=== PATIENT | male | born 1995 | race Two or more races ===

== ENCOUNTER 2020-02-13 11:13 | Emergency (ER) | payer SELFPAY ==
[2020-02-13] MEDS ORDERED: LIDOCAINE 5% (700 MG) TRANSDERMAL ADH..PATCH TP ONE (11:22)
[2020-02-13] MEDS ORDERED: CYCLOBENZAPRINE HCL 10 MG TABLET PO ONE (11:22)
[2020-02-13] MEDS ORDERED: KETOROLAC TROMETHAMINE 60 MG/2 ML SDV IM ONE (11:22)
--- NOTE | 2020-02-13 11:23 | ER Document Report ---
HPI - HPI Time Seen by Provider: 02/13/20 11:22 Pain Level: 3 Notes: 25-year-old male patient presents emergency department chief complaint of low back pain. Patient reports pain ongoing for the last 2 to 3 days. He denies any specific injury. Denies any bowel or bladder incontinence or urinary retention. He does report that he has a hard time having a bowel movement because it hurts to strain. Past Medical History - General Information source: Patient - Social History Smoking Status: Current Every Day Smoker Chew tobacco use (# tins/day): No Frequency of alcohol use: None Drug Abuse: None Family History: Reviewed & Not Pertinent Patient has homicidal ideation: No - Medical History Medical History: Negative Surgical Hx: Negative - Immunizations Immunizations up to date: Yes Vertical Provider Document - CONSTITUTIONAL Notes: PHYSICAL EXAMINATION: GENERAL: Well-appearing, well-nourished and in no acute distress. HEAD: Atraumatic, normocephalic. EYES: Pupils equal round extraocular movements intact, conjunctiva are normal. ENT: Nares patent NECK: Normal range of motion LUNGS: No respiratory distress Musculoskeletal: Normal range of motion, tenderness to the left lumbar paraspinous region. No vertebral tenderness, step-off or deformity. NEUROLOGICAL: Normal speech, normal gait. PSYCH: Normal mood, normal affect. SKIN: Warm, Dry, normal turgor, no rashes or lesions noted. Course - Re-evaluation Re-evalutation: Presentation of a well appearing patient complaining of acute on chronic back pain. No rapid progression of symptoms, systemic symptoms including fevers, chills, weight loss, history of recent bacterial infection, bilateral symptoms, numbness, weakness, difficulty walking, urinary retention or bowel incontinence, personal history of cancer, immunosuppression, diabetes, known AAA, or history of IV drug use. Exam is without point tenderness over vertebral bodies, pulsatile abdominal mass, and patient has symmetric and intact lower extremity strength, sensation, and reflexes without clonus. 2+ symmetric medial malleolar and dorsalis pedis pulses Based on history and physical, I have a very low suspicion of a concerning etiology of pain including epidural compression syndrome, spinal infection, transverse myelitis, malignancy, abdominal aortic aneurysm, renal colic, acute lower extremity claudication, neurogenic claudication, ankylosing spondylitis, or other intra-abdominal process. Due to absence of concerning risk factors in history and physical as well as absence of rapidly progressive, severe, or bilateral symptoms, will defer imaging at this point. Patient reports significant improvement in pain after administration of medications in the emergency department he will be discharged home at this time. - Vital Signs Vital signs: Temp Pulse Resp BP Pulse Ox 98.2 F 113 H 18 152/84 H 100 02/13/20 11:20 02/13/20 11:20 02/13/20 11:20 02/13/20 11:20 02/13/20 11:20 Discharge - Discharge Clinical Impression: Back pain Qualifiers: Back pain location: low back pain Chronicity: acute Back pain laterality: unspecified Sciatica presence: unspecified whether sciatica present Qualified C ode(s): M54.5 - Low back pain Condition: Stable Disposition: HOME, SELF-CARE Additional Instructions: You have been seen in the Emergency Department (ED) today for back pain. Your workup and exam have not shown any acute abnormalities and you are likely suffering from muscle strain or possible problems with your discs, but there is no treatment that will fix your symptoms at this time. Please take the medication that has been prescribed as directed. You should also purchase a local lidocaine cream such as "aspercreme with lidocaine" and use per bottle instructions to the affected area. Apply heat to the area as often as you are able. Continue to keep active and avoid prolonged periods of bed rest. Please follow up with your doctor as soon as possible regarding today's ED visit and your back pain. Return to the ED for worsening back pain, fever, weakness or numbness of either leg, or if you develop either (1) an inability to urinate or have bowel movements, or (2) loss of your ability to control your bathroom functions (if you start having "accidents"), or if you develop other new symptoms that concern you.concern you. Prescriptions: Cyclobenzaprine HCl [Flexeril 10 mg Tablet] 10 mg PO TIDP PRN #20 tab PRN Reason: Ibuprofen [Motrin 800 mg Tablet] 800 mg PO Q8H PRN #30 tab PRN Reason: Referrals: DALILA DOVE MD [NO LOCAL MD] - Follow up as needed DAJA OSBORNE MD [COMMUNITY BASED STAFF] - Follow up as needed
[2020-02-13 12:31] VITALS: BP 141/82
== END 2020-02-13 12:42 | disposition home or self-care (01) ==
LOC: ER 11:13
DX: K61.1 Rectal abscess (principal); L05.01 Pilonidal cyst with abscess; F17.200 Nicotine dependence, unspecified, uncomplicated; R30.0 Dysuria; M54.9 Dorsalgia, unspecified; R00.0 Tachycardia, unspecified
CPT/HCPCS: 99283; 96372; 10080; J1885

== ENCOUNTER 2020-02-14 14:31 | Observation (INO) | payer SELFPAY ==
--- NOTE | 2020-02-14 15:14 | ER Document Report ---
ED Neck/Back Problem - General Chief Complaint: Low Back Pain Stated Complaint: LOWER BACK PAIN Time Seen by Provider: 02/14/20 14:58 Mode of Arrival: Ambulatory Information source: Patient Notes: 25-year-old male with no previous medical problems presents to the emergency room complaining of worsening lower tailbone pain for the past week. Patient states he was seen here yesterday received a shot of Toradol as well as Flexeril states he felt better yesterday woke up this morning with worsening pain. He denies any trauma or injury to his back. 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 Has been taking the Flexeril and Motrin today without relief. Complains of dysuria. Denies any penile discharge. Denies any testicular pain. Denies any recent travel, no COVID-19 exposure. TRAVEL OUTSIDE OF THE [place] IN LAST 30 DAYS: No - Related Data Allergies/Adverse Reactions: hydrocodone Adverse Reaction (Mild, Verified 02/13/20 11:17) VOMITING Past Medical History - General Information source: Patient - Social History Smoking Status: Current Every Day Smoker Frequency of alcohol use: None Drug Abuse: None Family History: Reviewed & Not Pertinent - Immunizations Immunizations up to date: Yes Review of Systems - Review of Systems Constitutional: No symptoms reported EENT: No symptoms reported Cardiovascular: No symptoms reported Respiratory: No symptoms reported Gastrointestinal: No symptoms reported Genitourinary: Dysuria Male Genitourinary: No symptoms reported Musculoskeletal: Back pain Skin: No symptoms reported Neurological/Psychological: No symptoms reported -: Yes All other systems reviewed and negative Physical Exam - Vital signs Vitals: Temp Pulse Resp BP Pulse Ox 100.1 F 111 H 18 160/77 H 99 02/14/20 14:36 02/14/20 14:36 02/14/20 14:36 02/14/20 14:36 02/14/20 14:36 - General General appearance: Appears well In distress: Moderate - Respiratory Respiratory status: No respiratory distress Chest status: Nontender Breath sounds: Normal Chest palpation: Normal - Cardiovascular Rhythm: Tachycardia Heart sounds: Normal auscultation Murmur: No - Abdominal Inspection: Normal Distension: No distension Bowel sounds: Normal Tenderness: Nontender Organomegaly: No organomegaly - Rectal Tenderness: Yes Hemorrhoids: None Notes: There is a 2 cm nonfluctuant, warm and tender right sided abscess on right b uttock area between the rectum and the pilonidal area. Not consistent with a perirectal abscess or a pilonidal abscess.. 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 - Back Back: Normal, Tender - Tenderness with a palpable perirectal abscess that is warm to palpation.. No: CVA tenderness, Vertebra tenderness - Neurological Neuro grossly intact: Yes Cognition: Normal Orientation: AAOx4 [place] Coma Scale Eye Opening: Spontaneous [place]te Coma Scale Verbal: Oriented [place] Coma Scale Motor: Obeys Commands [place] Coma Scale Total: 15 Speech: Normal Motor strength normal: LUE, RUE, LLE, RLE Sensory: Normal Course - Re-evaluation Re-evalutation: 02/14/20 16:18 Patient is resting comfortably with decreased pain. Reviewed all test results with patient. Was seen and evaluated by my attending Dr. Jackson. 02/14/20 16:29 patient is aware that I have discussed this case with on-call surgeon Dr. Alva who will come down and see the patient in evaluation. 02/14/20 17:00 Patient was seen and evaluated by on-call surgeon Dr. Alva per nursing staff patient will be going to the OR. - Vital Signs Vital signs: Temp Pulse Resp BP Pulse Ox 98.8 F 87 16 160/77 H 98 02/14/20 17:11 02/14/20 16:59 02/14/20 16:59 02/14/20 14:36 02/14/20 16:59 - Laboratory Result Diagrams: 02/14/20 15:07 02/14/20 15:07 Laboratory results interpreted by me: 02/14/20 02/14/20 15:07 15:07 WBC 13.2 H Lymph % (Auto) 10.6 L Absolute Neuts (auto) 10.2 H Urine Ketones TRACE H - Diagnostic Test Radiology reviewed: Reports reviewed - Consults Dr. Alva Time consulted: 16:28 Reason for consultation: 02/14/20 16:28 possible surgical intervention vs. admit for IV antibiotics. Consulted provider: will come to ER Discharge - Discharge Clinical Impression: Rectal abscess Condition: Stable Disposition: ADMITTED OBSERVATION Unit Admitted: Surgical Floor
[2020-02-14] MEDS ORDERED: MORPHINE SULFATE 10 MG/ML INJ IV ONE (15:15)
[2020-02-14] MEDS ORDERED: NORMAL SALINE 1000 ML 1,000 ML IV ONE (15:15)
[2020-02-14] MEDS ORDERED: ACETAMINOPHEN 325 MG TABLET PO ONE (15:15)
[2020-02-14 15:27] LABS: ABSOLUTE EOSINOPHILS # (AUTO) 0.2 10^3/uL (0.0-0.6); ABSOLUTE LYMPHOCYTES (AUTO) 1.4 10^3/uL (0.5-4.7); ABSOLUTE MONOCYTES (AUTO) 1.4 10^3/uL (0.1-1.4); ABSOLUTE NEUT (AUTO) 10.2 10^3/uL (1.7-8.2); APPEARANCE,URINE CLEAR; BASOPHILS % (AUTO) 0.3 % (0-2); BILIRUBIN,URINE NEGATIVE (NEGATIVE); COLOR,URINE YELLOW; EOSINOPHILS % (AUTO) 1.5 % (0-6); GLUCOSE, URINE NEGATIVE (NEGATIVE); HEMOGLOBIN 15.1 g/dL (13.5-17.0); KETONES,URINE TRACE mg/dL (NEGATIVE); LEUKOCYTE ESTERASE,URINE NEGATIVE (NEGATIVE); LYMPHOCYTES % (AUTO) 10.6 % (13-45); MEAN CORPUSCULAR HEMOGLOBIN 31.3 pg (27.0-33.4); MEAN CORPUSCULAR HGB CONC 35.9 g/dL (32.0-36.0); MEAN CORPUSCULAR VOLUME 87 fl (80-97); MONOCYTES % (AUTO) 10.3 % (3-13); NITRITE,URINE NEGATIVE (NEGATIVE); PLATELET COUNT 291 10^3/uL (150-450); PROTEIN,URINE NEGATIVE (NEGATIVE); RED BLOOD COUNT 4.82 10^6/uL (4.35-5.55); SEGMENTED NEUTROPHILS % (AUTO) 77.3 % (42-78); TOTAL CELLS COUNTED % (AUTO) 100 %; URINE SPECIFIC GRAVITY 1.024; UROBILINOGEN,URINE NEGATIVE mg/dL (<2.0); WHITE BLOOD COUNT 13.2 10^3/uL (4.0-10.5)
[2020-02-14 15:38] LABS: ALBUMIN 4.5 g/dL (3.5-5.0); ALKALINE PHOSPHATASE 92 U/L (38-126); ANION GAP 9 (5-19); ASPARTATE AMINO TRANSFERASE 19 U/L (17-59); BILIRUBIN,TOTAL 0.9 mg/dL (0.2-1.3); BLOOD UREA NITROGEN 9 mg/dL (7-20); CALCIUM 9.5 mg/dL (8.4-10.2); CARBON DIOXIDE 26 mmol/L (22-30); CHLORIDE 102 mmol/L (98-107); GLUCOSE 98 mg/dL (75-110); POTASSIUM 4.3 mmol/L (3.6-5.0); TOTAL PROTEIN 7.6 g/dL (6.3-8.2)
--- NOTE | 2020-02-14 16:05 | RADIOLOGY REPORT (SQ) ---
EXAM DESCRIPTION: CT ABD/PELVIS WITH IV ONLY IMAGES COMPLETED DATE/TIME: 02/14/2020 3:45 pm REASON FOR STUDY: rectal abscess COMPARISON: None. TECHNIQUE: CT scan of the abdomen and pelvis performed using helical scanning technique with dynamic intravenous contrast injection. No oral contrast. Images reviewed with lung, soft tissue, and bone windows. Reconstructed coronal and sagittal MPR images reviewed. Delayed images for evaluation of the urinary system also acquired. All images stored on PACS. All CT scanners at this facility use dose modulation, iterative reconstruction, and/or weight based d osing when appropriate to reduce radiation dose to as low as reasonably achievable (ALARA). [facility]: Dose Right [facility]: CareDose [facility]: Dose Right [facility]: Teradose 4D [facility]: backstitch CONTRAST TYPE AND DOSE: Contrast/concentration: Isovue 350.00 mg/ml; Total Contrast Delivered: 99.0 ml; Total Saline Delivered: 46.2 ml RENAL FUNCTION: None required. The patient is less than 50 years old. RADIATION DOSE: CT Rad equipment meets quality standard of care and radiation dose reduction techniq ues were employed. CTDIvol: 16.9 - 20.3 mGy. DLP: 2246 mGy-cm. LIMITATIONS: None. FINDINGS: LOWER CHEST: No acute findings. LIVER: The morphology of the liver is noncirrhotic. The portal veins are patent. There is no hepati c mass. SPLEEN: No splenomegaly or splenic mass. PANCREAS: No acute abnormality of the pancreas. GALLBLADDER: No abnormality that is apparent on CT. ADRENAL GLANDS: No mass or asymmetry. RIGHT KIDNEY AND URETER: No solid masses. No calcifications. No hydronephrosis or hydroureter. LEFT KIDNEY AND URETER: No solid masses. No calcifications. No hydronephrosis or hydroureter. AORTA AND VESSELS: No aneurysm or dissection of the abdominal aorta. RETROPERITONEUM: No retroperitoneal adenopathy, hemorrhage or mass. BOWEL AND PERITONEAL CAVITY: No bowel obstruction, bowel wall thickening or pericolonic/ perienteric inflammation. No mesenteric adenopathy, free intraperitoneal fluid or mesenteric/ omental inflammati on. APPENDIX: Normal. PELVIS: No abnormality. ABDOMINAL WALL: There is a subcutaneous fluid collection in the superior aspect of the intergluteal c left (posterior to the coccyx on image 96 of series 3) that measures 1.8 cm in AP diameter, 1.8 cm in transverse diameter and 2.5 cm in AP diameter. The collection is associated with dermal thickening a nd inflammatory stranding of the surrounding fat. There is no associated erosion of the coccyx. BONES: No fracture or osseous lesion. OTHER: No other finding. IMPRESSION: Subcutaneous abscess in the superior aspect of the intergluteal cleft (posterior to the coccyx on image 96 of series 3) that measures 1.8 cm in AP diameter, 1.8 cm in transverse diameter an d 2.5 cm in AP diameter. The abscess is associated with dermal thickening and inflammatory stranding of the surrounding fat. There is no associated erosion of the coccyx. TECHNICAL DOCUMENTATION: JOB ID: [id number] Quality ID # [id number]: Final reports with documentation of one or more dose reduction techniques (e.g., Au tomated exposure control, adjustment of the mA and/or kV according to patient size, use of iterative reconstruction technique) 2010 [employer]- All Rights Reserved Reading location - IP/workstation name: [email or web address]
[2020-02-14] MEDS ORDERED: VANCOMYCIN HCL INJ 1000 MG VIAL IV ONE (16:18)
[2020-02-14] MEDS ORDERED: DEXTROSE 50%-WATER 25 GM/50 ML DISP.SYRIN IV PRN ×2 (18:39)
[2020-02-14] MEDS ORDERED: GLUCAGON,HUMAN RECOMB 1 MG INJ SUBCUT PRN (18:39)
[2020-02-14] MEDS ORDERED: DEXTROSE 40% GEL 15 GM TUBE PO PRN ×2 (18:39)
[2020-02-14] MEDS ORDERED: PIPERACILLIN/TAZOBACTAM 3.375 GM VIAL IV SCH (18:45)
[2020-02-14] MEDS ORDERED: ONDANSETRON HCL INJ/PF 4 MG/2 ML SDV IV SCH (18:45)
[2020-02-14] MEDS: PIPERACILLIN SODIUM/TAZOBACTAM 3.375 GM in NORMAL SALINE 100 ML IV SCH (20:28)
[2020-02-14] MEDS: DEXTROSE 5%-LACTATED RINGERS 1,000 ML IV PRN (20:31)
[2020-02-14] MEDS: MORPHINE SULFATE 10 MG/ML INJ IV PRN (20:31)
[2020-02-14] MEDS ORDERED: HYDROMORPHONE HCL INJ/PF 2 MG/ML AMPULE IV PRN (22:09)
[2020-02-15] MEDS ORDERED: KETOROLAC TROMETHAMINE 60 MG/2 ML SDV IV SCH
[2020-02-15] MEDS ORDERED: KETOROLAC TROMETHAMINE INJ/PF 30 MG/1 ML SDV IV ONE (01:30)
[2020-02-15] MEDS: PIPERACILLIN SODIUM/TAZOBACTAM 3.375 GM in NORMAL SALINE 100 ML IV SCH ×3 (03:48→14:44)
[2020-02-15] MEDS ORDERED: ONDANSETRON HCL INJ/PF 4 MG/2 ML SDV ONE (05:00)
[2020-02-15] MEDS ORDERED: DEXAMETHASONE SOD PHOSPHATE INJ 4 MG/1 ML VIAL ONE (05:00)
[2020-02-15] MEDS ORDERED: SUCCINYLCHOLINE CHLORIDE INJ 200 MG/10 ML VIAL ONE (05:00)
[2020-02-15] MEDS ORDERED: ROCURONIUM BROMIDE INJ 50 MG/5 ML VIAL IV ONE (05:00)
[2020-02-15] MEDS: MORPHINE SULFATE 10 MG/ML INJ IV PRN (05:51)
[2020-02-15] MEDS: KETOROLAC TROMETHAMINE INJ/PF 30 MG/1 ML SDV IV SCH ×2 (05:54→12:44)
[2020-02-15] MEDS ORDERED: FENTANYL CITRATE INJ/PF 100 MCG/2 ML AMPUL ONE (07:09)
[2020-02-15] MEDS ORDERED: HYDROMORPHONE HCL INJ/PF 2 MG/ML AMPULE ONE (07:09)
[2020-02-15] MEDS ORDERED: MIDAZOLAM 2 MG/2 ML INJ ONE (07:09)
[2020-02-15] MEDS ORDERED: DEXMEDETOMIDINE INJ 80 MCG/20 ML VIAL IV ONE (07:09)
[2020-02-15] MEDS ORDERED: PROPOFOL INJ 200 MG/20 ML VIAL IV ONE ×2 (07:10)
[2020-02-15] MEDS ORDERED: LIDOCAINE 0.5% INJ-PF (5 MG/ML) 50 ML SDV ONE (07:50)
[2020-02-15] MEDS ORDERED: BUPIVACAINE HCL 0.25% /EPINEPHRINE INJ/PF 30 ML SDV ONE (08:41)
[2020-02-15] MEDS: DEXTROSE 5%-LACTATED RINGERS 1,000 ML IV PRN (11:04)
[2020-02-15] MEDS ORDERED: NALOXONE HCL INJ/PF 0.4 MG/1 ML SDV ONE (12:31)
--- NOTE | 2020-02-15 14:00 | Operative Report ---
Operative Report DATE OF SURGERY: 02/15/20 PREOPERATIVE DIAGNOSIS: Pilonidal abscess POSTOPERATIVE DIAGNOSIS: Same OPERATION: Incision and drainage of pilonidal abscess SURGEON: NILE CARSON ANESTHESIA: LMAC TISSUE REMOVED OR ALTERED: Pus COMPLICATIONS: none ESTIMATED BLOOD LOSS: 15 cc QUANTITATIVE BLOOD LOSS: 15 INTRAOPERATIVE FINDINGS: Pilonidal abscess with a cavity over 4 cm long by 1.5 cm wide by 2.5 cm deep PROCEDURE: Patient was given IV sedation and patient placed in jackknife prone position and the sacrococcygeal area was subsequently prepped and draped in the usual sterile fashion. Appropriate timeout was then called. Next the longitudinal incision was made about 1 cm to the left lateral of the midline where the abscess prominence was noted. A gush of pus was noted and specimen was sent for C&S. The abscess cavity was subsequently digitally probed and no evidence of compartment formation. Was copiously irrigated with saline solution. Hemostasis was then obtained with the use of cautery primary wound around the subcu and dermal areas. The cavity roughly measured about 4cm long by 2-1/2 cm deep by 4 cm wide. The operative site was then injected with quarter percent Marcaine with epinephrine. Most of the hair around operative site was then pulled out with the use of hemostat. The cavity was then packed with quarter inch iodoform gauze utilizing the whole bottle. Sterile 4 x 4 and ABD pad was used to dress the wound. Patient tolerated procedure well and brought to the recovery room in satisfactory condition.
[2020-02-15 16:16] VITALS: BP 136/71
--- NOTE | 2020-02-15 20:42 | PDOC DISCHARGE SUMMARY ---
General - Admit/Disc Date/PCP Admission Date/Primary Care Provider: 02/14/20 17:04 Discharge Date: 02/15/20 - Discharge Diagnosis Final Diagnosis: Pilonidal abscess - Assessment Summary: Patient underwent I&D of pilonidal abscess on 02/15/2020. Patient was admitted night prior and started on IV antibiotics. Postoperatively patient did very well and discharged on the same day of surgery. Mother and patient were instructed to remove the packing at home the next day in 2 start washing the operative site with water especially using shower for some pressure. A dry dressing should be placed. This should be done once to twice a day. Patient also given prescription for Cipro 500 mg p.o. twice a day for 5 days. Also given prescription for Toradol 30 mg p.o. every 6 hours as needed for pain x20 patient also to be followed up in the surgical clinic in 2 to 3 weeks. - Additional Information Resuscitation Status: Full Code Discharge Diet: Regular Discharge Activity: Activity As Tolerated Referrals: [facility] [Provider Group] - 02/21/20 10:45 am Home Medications: Aspirin/Acetaminophen/Caffeine [Excedrin Extra Strength Caplet] 1 each PO PRN PRN 02/14/20 Cyclobenzaprine HCl [Flexeril 10 mg Tablet] 10 mg PO TIDP PRN 02/14/20 Ibuprofen [Motrin 800 mg Tablet] 800 mg PO Q8H PRN 02/14/20 History of Present Illiness History of Present Illness: ABDULLAHI JUAREZ JR is a 25 year old male started complaining of pains along the coccygeal area about a week ago. Yesterday he came to ED were patient was sent home after giving pain medications for back pains. Today patient is having more pains and low-grade fever with white count elevation. CT scan was done which showed subcutaneous abscess just below the coccygeal area but above the rectum. Hospital Course Hospital Course: Patient was admitted February 13 and started on IV antibiotics. Underwent incision and drainage of pilonidal abscess on 02/15/2020. Patient discharged later in the day after surgery given prescription for Cipro and Toradol. Packing will be removed by patient and to the next day and continue daily showering and washing the wound with soap and water once or twice a day. Patient to be followed up in the surgical clinic in 2 weeks. Physical Exam Vital Signs: Temp Pulse Resp BP Pulse Ox 98.2 F 81 16 136/71 H 96 02/15/20 16:09 02/15/20 16:09 02/15/20 16:09 02/15/20 16:00 02/15/20 16:09 Intake & Output 02/14/20 02/15/20 02/16/20 06:59 06:59 06:59 Intake Total 2200 1250 Output Total 225 Balance 2200 1025 Weight 113.7 kg Exam: Tender swelling along the sacrococcygeal area Results Laboratory Results: WBC 13.2 10^3/uL (4.0-10.5) H 02/14/20 15:07 RBC 4.82 10^6/uL (4.35-5.55) 02/14/20 15:07 Hgb 15.1 g/dL (13.5-17.0) 02/14/20 15:07 Hct 42.0 % (37.9-51.0) 02/14/20 15:07 MCV 87 fl (80-97) 02/14/20 15:07 MCH 31.3 pg (27.0-33.4) 02/14/20 15:07 MCHC 35.9 g/dL (32.0-36.0) 02/14/20 15:07 RDW 12.0 % (11.5-14.0) 02/14/20 15:07 Plt Count 291 10^3/uL (150-450) 02/14/20 15:07 Lymph % (Auto) 10.6 % (13-45) L 02/14/20 15:07 Carbon % (Auto) 10.3 % (3-13) 02/14/20 15:07 Eos % (Auto) 1.5 % (0-6) 02/14/20 15:07 Baso % (Auto) 0.3 % (0-2) 02/14/20 15:07 Absolute Neuts (auto) 10.2 10^3/uL (1.7-8.2) H 02/14/20 15:07 Absolute Lymphs (auto) 1.4 10^3/uL (0.5-4.7) 02/14/20 15:07 Absolute Monos (auto) 1.4 10^3/uL (0.1-1.4) 02/14/20 15:07 Absolute Eos (auto) 0.2 10^3/uL (0.0-0.6) 02/14/20 15:07 Absolute Basos (auto) 0.0 10^3/uL (0.0-0.2) 02/14/20 15:07 Seg Neutrophils % 77.3 % (42-78) 02/14/20 15:07 Sodium 137.4 mmol/L (137-145) 02/14/20 15:07 Potassium 4.3 mmol/L (3.6-5.0) 02/14/20 15:07 Chloride 102 mmol/L (98-107) 02/14/20 15:07 Carbon Dioxide 26 mmol/L (22-30) 02/14/20 15:07 Anion Gap 9 (5-19) 02/14/20 15:07 BUN 9 mg/dL (7-20) 02/14/20 15:07 Creatinine 0.82 mg/dL (0.52-1.25) 02/14/20 15:07 Est GFR ( Amer) > 60 (>60) 02/14/20 15:07 Est GFR (MDRD) Non-Af > 60 (>60) 02/14/20 15:07 Glucose 98 mg/dL (75-110) 02/14/20 15:07 Lactic Acid 1.8 mmol/L (0.7-2.1) 02/14/20 15:07 Calcium 9.5 mg/dL (8.4-10.2) 02/14/20 15:07 Total Bilirubin 0.9 mg/dL (0.2-1.3) 02/14/20 15:07 Direct Bilirubin 0.0 mg/dL (0.0-0.4) 02/14/20 15:07 Neonat Total Bilirubin Not Reportable 02/14/20 15:07 Neonat Direct Bilirubin Not Reportable 02/14/20 15:07 Neonat Indirect Bili Not Reportable 02/14/20 15:07 AST 19 U/L (17-59) 02/14/20 15:07 ALT 20 U/L (<50) 02/14/20 15:07 Alkaline Phosphatase 92 U/L (38-126) 02/14/20 15:07 Total Protein 7.6 g/dL (6.3-8.2) 02/14/20 15:07 Albumin 4.5 g/dL (3.5-5.0) 02/14/20 15:07 Urine Color YELLOW 02/14/20 15:07 Urine Appearance CLEAR 02/14/20 15:07 Urine pH 6.0 (5.0-9.0) 02/14/20 15:07 Ur Specific [place] 1.024 02/14/20 15:07 Urine Protein NEGATIVE mg/dL (NEGATIVE) 02/14/20 15:07 Urine Glucose (UA) NEGATIVE mg/dL (NEGATIVE) 02/14/20 15:07 Urine Ketones TRACE mg/dL (NEGATIVE) H 02/14/20 15:07 Urine Blood NEGATIVE (NEGATIVE) 02/14/20 15:07 Urine Nitrite NEGATIVE (NEGATIVE) 02/14/20 15:07 Urine Bilirubin NEGATIVE (NEGATIVE) 02/14/20 15:07 Urine Urobilinogen NEGATIVE mg/dL (<2.0) 02/14/20 15:07 Ur Leukocyte Esterase NEGATIVE (NEGATIVE) 02/14/20 15:07 Urine WBC (Auto) 1 /HPF 02/14/20 15:07 Urine RBC (Auto) 1 /HPF 02/14/20 15:07 Squamous Epi Cells Auto <1 /HPF 02/14/20 15:07 Urine Mucus (Auto) FEW /LPF 02/14/20 15:07 Urine Ascorbic Acid NEGATIVE (NEGATIVE) 02/14/20 15:07 SARS-CoV-2 (PCR) NEGATIVE (NEGATIVE) 02/14/20 17:19 Impressions: Abdomen/Pelvis CT 02/14/20 15:13 IMPRESSION: Subcutaneous abscess in the superior aspect of the intergluteal cleft (posterior to the coccyx on image 96 of series 3) that measures 1.8 cm in AP diameter, 1.8 cm in transverse diameter and 2.5 cm in AP diameter. The abscess is associated with dermal thickening and inflammatory stranding of the surrounding fat. There is no associated erosion of the coccyx. Plan Health Concerns: Concern for possible recurrence Plan of Treatment: And IND on 02/15/2020. Packing will be removed on 02/16/2020 and to continue with the daily shower washing the wound with soap and water. Follow-up surgical clinic in 2 weeks. Patient given prescription for Cipro 500 mg p.o. twice a day x5days Toradol 10 mg p.o. every 6 hours as needed for pain x20 Goals: Eventful healing Time Spent: Less than 30 Minutes
--- NOTE | 2020-02-17 22:39 | PDOC H&P ---
History of Present Illness Admission Date/PCP: 02/14/20 17:04 Patient complains of: Sacrococcygeal pains History of Present Illness: ABDULLAHI JUAREZ JR is a 25 year old male started complaining of pains along the coccygeal area about a week ago. Yesterday he came to ED were patient was sent home after giving pain medications for back pains. Today patient is having more pains and low-grade fever with white count elevation. CT scan was done which showed subcutaneous abscess just below the coccygeal area but above the rectum. Past Medical History Psychiatric Medical History: Denies: Depression Social History Smoking Status: Current Every Day Smoker Electronic Cigarette use?: No Frequency of Alcohol Use: None Hx Recreational Drug Use: No Drugs: None Hx Prescription Drug Abuse: No - Advance Directive Resuscitation Status: Full Code Family History Family History: Reviewed & Not Pertinent Parental Family History Reviewed: Yes Children Family History Reviewed: No Sibling(s) Family History Reviewed.: No Medication/Allergy Home Medications: Aspirin/Acetaminophen/Caffeine [Excedrin Extra Strength Caplet] 1 each PO PRN PRN 02/14/20 Cyclobenzaprine HCl [Flexeril 10 mg Tablet] 10 mg PO TIDP PRN 02/14/20 Ibuprofen [Motrin 800 mg Tablet] 800 mg PO Q8H PRN 02/14/20 Allergies/Adverse Reactions: hydrocodone Adverse Reaction (Mild, Verified 02/13/20 11:17) VOMITING Review of Systems Constitutional: PRESENT: as per HPI Gastrointestinal: PRESENT: other - Pains at the sacrococcygeal area Physical Exam Vital Signs: Temp Pulse Resp BP Pulse Ox 98.2 F 81 16 136/71 H 96 02/15/20 16:09 02/15/20 16:09 02/15/20 16:09 02/15/20 16:00 02/15/20 16:09 Intake & Output 02/16/20 02/17/20 02/18/20 06:59 06:59 06:59 Intake Total 1250 Output Total 225 Balance 1025 Results Laboratory Results: 02/14/20 15:07 02/14/20 15:07 Impressions: Abdomen/Pelvis CT 02/14/20 15:13 IMPRESSION: Subcutaneous abscess in the superior aspect of the intergluteal cleft (posterior to the coccyx on image 96 of series 3) that measures 1.8 cm in AP diameter, 1.8 cm in transverse diameter and 2.5 cm in AP diameter. The abscess is associated with dermal thickening and inflammatory stranding of the surrounding fat. There is no associated erosion of the coccyx.
== END 2020-02-15 16:00 | disposition home or self-care (01) ==
LOC: ER 14:31 → EH 17:04 → 4N 19:47
PROVIDERS: ADMIT Surgery; ATTEND Surgery
DX: L05.01 Pilonidal cyst with abscess (principal); R30.0 Dysuria; F17.200 Nicotine dependence, unspecified, uncomplicated; Z79.82 Long term (current) use of aspirin; Z79.899 Other long term (current) drug therapy; Z03.818 Encounter for observation for suspected exposure to other biological agents ruled out
CPT/HCPCS: 99285; 96361; 96375; 96365; 36415 ×2; 87040; 87070; 87205; 83605; 85025; 87635; 87075; 87077; 80053; 81001; 74177; 00300; 10060; G0378 ×2; A6266; J2250; J3490 ×4; J1100; J3010; J1885; J2270; J2310; J1170 ×2; J0330; J2405; J7121 ×2; J7050 ×2; J7030; J2704; J3370; J2543 ×2; C9803; 300